=== PATIENT | female | born 1990 | race Caucasian/White ===

== ENCOUNTER 2019-12-30 21:08 | Emergency (ER) | payer BC, MEDICAID, SELFPAY ==
[~2019-12-30] VITALS: Ht 170.2 cm; Wt 76.8 kg
[2019-12-30 21:08] VITALS: BP 126/68
[2019-12-30] MEDS ORDERED: CETI10CA2 PO (21:17)
[2019-12-30] MEDS ORDERED: KEFL500C17 PO (21:52)
[2019-12-30] MEDS ORDERED: CEPHALEXIN 500 MG CAP PO ONE (22:00)
== END 2019-12-30 22:08 | disposition home or self-care (01) ==
LOC: M ED 21:08
DX: H57.12 Ocular pain, left eye (principal); R22.0 Localized swelling, mass and lump, head; Z88.5 Allergy status to narcotic agent; Z91.018 Allergy to other foods